=== PATIENT | female | born 1990 | race Caucasian/White ===

== ENCOUNTER 2019-12-27 16:34 | Observation (INO) | payer OTHER ==
[~2019-12-27] VITALS: Ht 162.6 cm; Wt 82.6 kg
[2019-12-27 16:57] VITALS: BP 119/81
[2019-12-27] MEDS ORDERED: PREN-217 PO (17:00)
[2019-12-27 17:21] LABS: ANION GAP 12 mmol/L (8-16); CALCIUM, TOTAL 8.8 mg/dL (8.8-10.5); CARBON DIOXIDE 22 mmol/L (22-29); CHLORIDE 103 mmol/L (98-107); CREATININE 0.53 mg/dL (0.60-1.30); GLOMERULAR FILTR. RATE CALC > 60 mL/min (>60); GLUCOSE,RANDOM 87 mg/dL (70-110); POTASSIUM 3.9 mmol/L (3.5-5.1); SODIUM SERUM 137 mmol/L (136-145); UREA NITROGEN, BLOOD 10 mg/dL (7-18)
[2019-12-27 17:25] LABS: ALANINE AMINOTRANSFERASE 20 U/L (12-78); ALBUMIN 2.7 g/dL (3.4-5.0); ALKALINE PHOSPHATASE 149 U/L (46-116); ASPARTATE AMINOTRANSFERASE 14 U/L (15-37); BILIRUBIN,TOTAL 0.2 mg/dL (0.1-1.0); TOTAL PROTEIN, SERUM 6.8 g/dL (6.4-8.2); URIC ACID 4.7 mg/dL (2.6-7.2)
[2019-12-27] MEDS ORDERED: ACETAMINOPHEN 500 MG TABLET PO ONE (17:45)
[2019-12-27 18:54] LABS: HEMATOCRIT 40.5 % (36-46); HEMOGLOBIN 13.3 g/dL (12.0-16.0); MEAN CORPUSCULAR HEMOGLOBIN 27.9 pg (26.0-34.0); MEAN CORPUSCULAR HGB CONC 32.9 G/dL (31.0-37.0); MEAN CORPUSCULAR VOLUME 85 fL (80-100); NEUTROPHILS % (AUTO) 78.6 % (40.0-70.0); PLATELET COUNT (AUTO)-OB 165 K/uL (150-450); RED BLOOD CELL COUNT(AUTO) 4.76 MIL/uL (4.00-5.20); RED CELL DISTRIBUTION WIDTH 15.3 % (11.5-14.5)
[2019-12-27 18:55] LABS: BASOPHILS % (AUTO) 0.8 % (0.0-2.0); EOSINOPHILS % (AUTO) 1.1 % (1.0-6.0); LYMPHOCYTES # (AUTO) 2.1 K/uL (1.0-4.8); LYMPHOCYTES % (AUTO) 13.2 % (22.0-44.0); MONOCYTES % (AUTO) 6.3 % (2.0-9.0); NEUTROPHILS # (AUTO) 12.5 K/uL (1.8-7.7); PLATELET MORPHOLOGY COMMENT GIANT PLTS PRESENT
== END 2019-12-27 18:20 | disposition home or self-care (01) ==
LOC: 4S 16:34
PROVIDERS: ADMIT Obstetrics & Gynecology; ATTEND Obstetrics & Gynecology
DX: O14.93 Unspecified pre-eclampsia, third trimester (principal); Z3A.38 38 weeks gestation of pregnancy
CPT/HCPCS: 36415; 59025; 80053; 84550; 85025; G0378

== ENCOUNTER 2020-01-01 09:40 | Inpatient (IN) | payer OTHER ==
[~2020-01-01] VITALS: Ht 162.6 cm; Wt 81.2 kg
[~2020-01-01 09:40] MED LIST: PREN-217 PO
[2020-01-01] MEDS ORDERED: RINGERS SOLUTION,LACTATED 1,000 ML IV PRN (10:15)
[2020-01-01] MEDS ORDERED: METHYLERGONOVINE MALEATE 0.2 MG/ML VIAL IM PRN (10:15)
[2020-01-01] MEDS ORDERED: OXYTOCIN 30 UNITS/LACT RINGERS 500 ML IV ONE ×3 (10:15→17:44)
[2020-01-01] MEDS ORDERED: METOCLOPRAMIDE HCL 5 MG/ML 2 ML VIAL IVP PRN (10:15)
[2020-01-01] MEDS ORDERED: RINGERS SOLUTION,LACTATED 1,000 ML IV SCH (10:15)
[2020-01-01] MEDS ORDERED: FentaNYL CITRATE-PF 100 MCG/2 ML VIAL IVP PRN (10:15)
[2020-01-01] MEDS ORDERED: CITRIC ACID/SODIUM CITRATE 30 ML SOLUTION UDCUP PO PRN (10:15)
[2020-01-01 10:52] LABS: BASOPHILS % (AUTO) 0.5 % (0.0-2.0); EOSINOPHILS % (AUTO) 0 % (1.0-6.0); HEMATOCRIT 42.4 % (36-46); HEMOGLOBIN 13.9 g/dL (12.0-16.0); LYMPHOCYTES # (AUTO) 1.6 K/uL (1.0-4.8); MEAN CORPUSCULAR HEMOGLOBIN 28.2 pg (26.0-34.0); MEAN CORPUSCULAR HGB CONC 32.8 G/dL (31.0-37.0); MEAN CORPUSCULAR VOLUME 86 fL (80-100); MONOCYTES # (AUTO) 0.9 K/uL (0.1-1.0); NEUTROPHILS # (AUTO) 20.4 K/uL (1.8-7.7); PLATELET COUNT (AUTO) 151 K/uL (150-450); RED BLOOD CELL COUNT(AUTO) 4.92 MIL/uL (4.00-5.20); RED CELL DISTRIBUTION WIDTH 15.3 % (11.5-14.5)
[2020-01-01 10:56] LABS: NEUTROPHILS % (AUTO) 88.5 % (40.0-70.0)
[2020-01-01 11:00] VITALS: BP 143/93
[2020-01-01 11:09] LABS: ANION GAP 9 mmol/L (8-16); CALCIUM, TOTAL 8.8 mg/dL (8.8-10.5); CARBON DIOXIDE 22 mmol/L (22-29); CHLORIDE 103 mmol/L (98-107); CREATININE 0.78 mg/dL (0.60-1.30); GLOMERULAR FILTR. RATE CALC > 60 mL/min (>60); GLUCOSE,RANDOM 80 mg/dL (70-110); POTASSIUM 4.1 mmol/L (3.5-5.1); SODIUM SERUM 134 mmol/L (136-145); UREA NITROGEN, BLOOD 7 mg/dL (7-18)
[2020-01-01 11:14] LABS: ALANINE AMINOTRANSFERASE 20 U/L (12-78); ALBUMIN 2.9 g/dL (3.4-5.0); ALKALINE PHOSPHATASE 186 U/L (46-116); ASPARTATE AMINOTRANSFERASE 14 U/L (15-37); BILIRUBIN,TOTAL 0.3 mg/dL (0.1-1.0); TOTAL PROTEIN, SERUM 7.4 g/dL (6.4-8.2); URIC ACID 4.5 mg/dL (2.6-7.2)
[2020-01-01 11:39] LABS: CREATININE,URINE RANDOM 127.4 mg/dL (30.0-125.0)
[2020-01-01] MEDS ORDERED: ACETAMINOPHEN 500 MG TABLET PO ONE (11:45)
[2020-01-01 11:47] LABS: APPEARANCE,URINE CLEAR (CLEAR); BILIRUBIN,URINE NEGATIVE (NEGATIVE); GLUCOSE, URINE (UA) NEGATIVE (NEGATIVE); KETONES,URINE NEGATIVE (NEGATIVE); LEUKOCYTE ESTERASE ,URINE SMALL (NEGATIVE); NITRATE,URINE NEGATIVE (NEGATIVE); OCCULT BLOOD,URINE NEGATIVE (NEGATIVE); PH,URINE 7.5 (5.0-8.0); PROTEIN,URINE TRACE (NEGATIVE); UROBILINOGEN,URINE 0.2 mg/dL (<=1.0)
[2020-01-01 11:56] LABS: BACTERIA,URINE None Seen /HPF (None Seen); RBC,URINE None Seen /HPF (0-2); SQUAMOUS EPITHELIAL CELL,UR Few /LPF (None Seen)
[2020-01-01] MEDS ORDERED: LIDOCAINE/PF 2% 5 ML VIAL ONE (14:01)
[2020-01-01] MEDS ORDERED: ROPIVACAINE HCL/PF 0.2% 100 ML ED ONE (14:01)
[2020-01-01] MEDS ORDERED: NALBUPHINE HCL 10 MG/ML VIAL IVP PRN (14:30)
[2020-01-01] MEDS ORDERED: ROPIVACAINE HCL/PF 0.2% 100 ML ED PRN (14:30)
[2020-01-01] MEDS ORDERED: DiphenhydrAMINE HCL 50 MG/ML VIAL IVP PRN (14:30)
[2020-01-01] MEDS ORDERED: ONDANSETRON HCL 4 MG/2 ML VIAL IVP PRN (14:30)
[2020-01-01] MEDS ORDERED: OXYTOCIN 30 UNITS/LACT RINGERS 500 ML IV PRN (15:02)
[2020-01-01] MEDS ORDERED: MINERAL OIL 30 ML UDCUP VG ONE (16:45)
[2020-01-01] MEDS ORDERED: LIDOCAINE/PF 1% 30 ML VIAL INJ PRN ×2 (17:45)
[2020-01-01] MEDS ORDERED: GLYCERIN/WITCH HAZEL LEAF 40 PADS JAR TP PRN ×2 (17:45)
[2020-01-01] MEDS ORDERED: IBUPROFEN 800 MG TABLET PO PRN (17:45)
[2020-01-01] MEDS ORDERED: LANOLIN 7 GM OINTMENT TP PRN (17:45)
[2020-01-01] MEDS ORDERED: BENZOCAINE 20%/MENTHOL 56 GM SPRAY CANISTER TP PRN ×2 (17:45)
[2020-01-01] MEDS ORDERED: OxyCODONE HCL/ACETAMINOPHEN 5-325 MG TABLET PO PRN ×3 (17:45)
[2020-01-01] MEDS ORDERED: OXYGEN THERAPY IH SCH (20:00)
[2020-01-01] MEDS: MAGNESIUM HYDROXIDE SUSPENSION 30 ML UDCUP PO PRN (20:28)
[2020-01-01] MEDS: IBUPROFEN 800 MG TABLET PO PRN (23:34)
[2020-01-01] MEDS: OxyCODONE HCL/ACETAMINOPHEN 5-325 MG TABLET PO PRN (23:34)
[2020-01-02 07:00] LABS: BASOPHILS % (AUTO) 0.5 % (0.0-2.0); EOSINOPHILS % (AUTO) 0.2 % (1.0-6.0); HEMATOCRIT 36.4 % (36-46); LYMPHOCYTES # (AUTO) 2.2 K/uL (1.0-4.8); LYMPHOCYTES % (AUTO) 11.2 % (22.0-44.0); MEAN CORPUSCULAR HEMOGLOBIN 28.8 pg (26.0-34.0); MEAN CORPUSCULAR VOLUME 87 fL (80-100); MONOCYTES # (AUTO) 1.1 K/uL (0.1-1.0); MONOCYTES % (AUTO) 5.5 % (2.0-9.0); NEUTROPHILS # (AUTO) 16.5 K/uL (1.8-7.7); NEUTROPHILS % (AUTO) 82.6 % (40.0-70.0); PLATELET COUNT (AUTO)-OB 120 K/uL (150-450); RED BLOOD CELL COUNT(AUTO) 4.18 MIL/uL (4.00-5.20); RED CELL DISTRIBUTION WIDTH 15.7 % (11.5-14.5)
[2020-01-02 08:14] LABS: PLATELET MORPHOLOGY COMMENT GIANT PLTS PRESENT
[2020-01-02] MEDS: IBUPROFEN 800 MG TABLET PO PRN ×2 (08:24→18:08)
[2020-01-02] MEDS: MAGNESIUM HYDROXIDE SUSPENSION 30 ML UDCUP PO PRN (08:25)
[2020-01-02] MEDS ORDERED: IBUP-2071 PO (09:25)
[2020-01-02] MEDS ORDERED: DOCU-275 PO (09:26)
[2020-01-02] MEDS: OxyCODONE HCL/ACETAMINOPHEN 5-325 MG TABLET PO PRN ×2 (09:43→18:09)
== END 2020-01-02 18:15 | disposition home or self-care (01) | DRG 807 ==
LOC: OBSVTOIN 09:40 → 4S 09:40 → PREOBSVTOIN 01-12 10:54
PROVIDERS: ADMIT Obstetrics & Gynecology; ATTEND Obstetrics & Gynecology
PROC: 10E0XZZ Delivery of Products of Conception, External Approach (ICD-10-PCS; principal; 2020-01-01)
PROC: 0KQM0ZZ Repair Perineum Muscle, Open Approach (ICD-10-PCS; 2020-01-01)
PROC: 10907ZC Drainage of Amniotic Fluid, Therapeutic from Products of Conception, Via Natural or Artificial Opening (ICD-10-PCS; 2020-01-01)
PROC: 3E0R3BZ Introduction of Anesthetic Agent into Spinal Canal, Percutaneous Approach (ICD-10-PCS; 2020-01-01)
PROC: 00HU33Z Insertion of Infusion Device into Spinal Canal, Percutaneous Approach (ICD-10-PCS; 2020-01-01)
PROC: 10907ZC Drainage of Amniotic Fluid, Therapeutic from Products of Conception, Via Natural or Artificial Opening (ICD-10-PCS; 2020-01-01)
DX: O14.94 Unspecified pre-eclampsia, complicating childbirth (principal); Z37.0 Single live birth; Z3A.39 39 weeks gestation of pregnancy; O70.1 Second degree perineal laceration during delivery
CPT/HCPCS: 82570; 84156; 84550; 86850; 86900; 86901; J2590; J2795; J3490; J7120